=== PATIENT | female | born 1965 | race Caucasian/White ===

== ENCOUNTER 2019-05-26 13:01 | Inpatient (IN) | payer OTHER ==
[~2019-05-26] VITALS: Ht 167.6 cm; Wt 75.9 kg
[2019-05-26] MEDS ORDERED: NS 1,000 ML IV ONE (13:30)
[2019-05-26] MEDS ORDERED: ATOR40TA75 PO (13:34)
[2019-05-26] MEDS ORDERED: DULO1CAP6 PO (13:34)
[2019-05-26] MEDS ORDERED: QUET300T53 PO (13:34)
[2019-05-26] MEDS ORDERED: GABA-845 PO (13:34)
[2019-05-26] MEDS ORDERED: PANT40TA3 PO (13:34)
[2019-05-26] MEDS ORDERED: BUPR150T3 PO (13:34)
[2019-05-26] MEDS ORDERED: CLON1TAB17 PO (13:34)
[2019-05-26] MEDS ORDERED: CELE1CAP9 PO (13:34)
[2019-05-26] MEDS ORDERED: METF-954 PO (13:34)
[2019-05-26] MEDS ORDERED: RANI1TAB38 PO (13:34)
[2019-05-26] MEDS ORDERED: LAMO100T80 PO (13:34)
[2019-05-26] MEDS ORDERED: REXU1TAB3 PO (13:34)
[2019-05-26 13:50] LABS: VENOUS BASE EXCESS -8.3 (-2.0-2.0); VENOUS HCO3 17.1 MEQ/L (23.0-27.0); VENOUS O2 SATURATION 98.2 % (60.0-80.0); VENOUS PARTIAL PRESSURE CO2 34.9 mmHg (38.0-50.0); VENOUS PARTIAL PRESSURE O2 126.9 mmHg (30.0-50.0); VENOUS PH 7.307 UNITS (7.330-7.430); VENOUS STANDARD HCO3 17.9 MEQ/L; VENOUS TOTAL CO2 18.1 MEQ/L (24.0-28.0)
[2019-05-26 13:53] LABS: BASO % 0.3 % (0.0-1.0); HEMATOCRIT 40.4 % (36.0-47.0); HEMOGLOBIN 13.6 g/dl (12.0-15.5); LYMPH # 1.7 10^3/uL (1.5-4.5); LYMPH % 18.5 % (24.0-44.0); MEAN CORPUSCULAR HEMOGLOBIN 31.7 pg (27.0-33.0); MEAN CORPUSCULAR HGB CONC 33.7 g/dl (32.0-36.5); MEAN CORPUSCULAR VOLUME 94.2 fl (80.0-96.0); MONO # 0.5 10^3/uL (0.0-0.8); MONO % 5.7 % (0.0-5.0); NEUTROPHILS # 6.9 10^3/uL (1.8-7.7); NEUTROPHILS % 75.3 % (36.0-66.0); PLATELET COUNT, AUTOMATED 342 10^3/uL (150-450); RED BLOOD COUNT 4.29 10^6/uL (4.00-5.40); WHITE BLOOD COUNT 9.1 10^3/uL (4.0-10.0)
[2019-05-26 14:27] LABS: OSMOLALITY SERUM 289 MOSM/KG (275-295)
[2019-05-26] MEDS ORDERED: HumuLIN R (REGULAR) INSULIN (NovoLIN R) **100U/ML** PER UNIT IV ONE (14:45)
[2019-05-26 14:46] LABS: ACETONE/KETONE 6.86 MG/DL (<2.81); ALT/SGPT 49 U/L (12-78); BILIRUBIN,DIRECT 0.1 MG/DL (0.0-0.2); BILIRUBIN,TOTAL 0.2 MG/DL (0.2-1.0); CK-MB VALUE MASS < 1.0 NG/ML (<3.6); CPK CREATINE PHOSPHOKINASE 39 U/L (26-192); ETHYL ALCOHOL (ETHANOL) < 0.003 % (0.000-0.010); LIPASE 127 U/L (73-393); MAGNESIUM LEVEL 1.9 MG/DL (1.8-2.4); MB/CK RELATIVE INDEX 2.56 (< OR =4); PHOSPHORUS LEVEL 5.2 MG/DL (2.5-4.9); TOTAL PROTEIN 7.2 GM/DL (6.4-8.2); TROPONIN I < 0.02 NG/ML (< 0.10)
[2019-05-26] MEDS ORDERED: KCL 10MEQ IN D5/0.45NS 1000ML 1,000 ML IV SCH (15:00)
[2019-05-26] MEDS ORDERED: NS 2,000 ML IV ONE (15:00)
[2019-05-26] MEDS ORDERED: INSULIN HUMAN REGULAR 100 UNITS in NS 99 ML IV SCH ×2 (15:00→18:00)
[2019-05-26] MEDS ORDERED: INSULIN IV RATE CHANGE DOCUMENTATION ML/HR XX SCH (15:00)
[2019-05-26] MEDS ORDERED: ACETAMINOPHEN 325 MG TAB PO ONE (15:15)
[2019-05-26 15:20] LABS: HEMOGLOBIN A1c 10.4 %
[2019-05-26] MEDS ORDERED: LAMO150T2 PO ×2 (15:40)
[2019-05-26] MEDS ORDERED: GABA-843 PO (15:40)
[2019-05-26] MEDS ORDERED: CYAN100049 PO (15:40)
[2019-05-26] MEDS ORDERED: DEXTROSE 50% 50 ML SYRINGE IV STA (16:25)
[2019-05-26] MEDS ORDERED: D5W/0.45% SODIUM CHLORIDE 1,000 ML IV ONE (16:30)
[2019-05-26 16:36] VITALS: BP 118/57
[2019-05-26 17:00] VITALS: BP 122/58
[2019-05-26] MEDS: ENOXAPARIN 40 MG/0.4 ML SYRINGE (J1650) SC SCH (17:54)
[2019-05-26] MEDS: D5W/0.45% SODIUM CHLORIDE 1,000 ML IV SCH (17:54)
[2019-05-26 19:00] VITALS: BP 130/61
[2019-05-26] MEDS: INSULIN IV RATE CHANGE DOCUMENTATION ML/HR XX SCH ×2 (19:10→22:02)
[2019-05-26 20:00] VITALS: BP 125/61
[2019-05-26 20:35] LABS: AMPHETAMINES LEVEL URINE NEGATIVE (NEGATIVE); BARBITURATES URINE NEGATIVE (NEGATIVE); BENZODIAZEPINES URINE NEGATIVE (NEGATIVE); CANNABINOIDS URINE NEGATIVE (NEGATIVE); COCAINE METABOLITE URINE NEGATIVE (NEGATIVE); METHADONE URINE NEGATIVE (NEGATIVE); OPIATES URINE NEGATIVE (NEGATIVE); PHENCYCLIDINE URINE NEGATIVE (NEGATIVE)
[2019-05-26 20:44] LABS: BLOOD UREA NITROGEN 11 MG/DL (7-18); CALCIUM LEVEL 8.2 MG/DL (8.5-10.1); CARBON DIOXIDE LEVEL 19 MEQ/L (21-32); CHLORIDE LEVEL 107 MEQ/L (98-107); GLOMERULAR FILTRATION RATE > 60.0 (>51); GLUCOSE, FASTING 210 MG/DL (70-100); PHOSPHORUS LEVEL 2.8 MG/DL (2.5-4.9); SODIUM LEVEL 137 MEQ/L (136-145)
[2019-05-26] MEDS ORDERED: QUEtiapine FUMARATE 100 MG TAB PO SCH (21:00)
[2019-05-26] MEDS ORDERED: BREXPIPRAZOLE 0.5MG TABLET (REXULTI) PO SCH (21:00)
[2019-05-26] MEDS ORDERED: ATORVASTATIN 20 MG TAB PO SCH (21:00)
[2019-05-26] MEDS: DULoxetine 30 MG CAP (CYMBALTA) PO SCH (21:09)
[2019-05-26] MEDS: raNITIdine SYRUP 150 MG/10 ML UDC PO SCH (21:09)
[2019-05-26] MEDS: lamoTRIgine 100MG TAB PO SCH (21:10)
[2019-05-26] MEDS: PANTOPRAZOLE 40MG TAB (PROTONIX) PO SCH (21:10)
[2019-05-26] MEDS: GABAPENTIN 300 MG CAP PO SCH (21:10)
[2019-05-26] MEDS: buPROPion **XL** TABLET 150MG (WELLBUTRIN XL) PO SCH (21:10)
[2019-05-26] MEDS: clonazePAM 1 MG TAB PO SCH (21:11)
--- NOTE | 2019-05-26 22:09 | REP ---
Clinical: Diabetic ketoacidosis . Comparison: None . Findings: The mediastinum and cardiac silhouette are stable and within normal limits for portable technique. The lung lucio are clear without acute consolidation, effusion, or pneumothorax. Skeletal structures are intact. Impression: No acute cardiopulmonary process appreciated. Electronically Signed by Blayne Lawler MD 05/26/2019 10:01 P
--- NOTE | 2019-05-26 22:24 | HPE ---
DATE OF ADMISSION: 05/26/2019 PRIMARY CARE PHYSICIAN: Dr. Lindsay in [place]. CHIEF COMPLAINT: "[place] really wacked out; delirious, I think." HISTORY OF PRESENT ILLNESS: This is a 54-year-old female, history of bipolar disorder, type 2 diabetes, fibroid uterus, diabetic peripheral neuropathy, presents to the emergency room with feeling "wacked out and delirious" that she noticed since Saturday. The patient flew in from [place] and usually takes medications for her bipolar disorder. From [place] to [place], patient's medications went missing, and from Saturday, Saturday and Saturday, patient had not been taking any of her bipolar medications. She did have her metformin and clonazepam in her pocket on her way to [place]. Her parents mailed her pills, and she was started back on this today. Patient complained of diaphoresis, chills, two episodes of diarrhea, two episodes of vomiting yesterday. No abdominal pain. She felt that she was withdrawing and presented to the emergency room today. She was found to be in diabetic ketoacidosis with positive beta-hydroxybutyrate. Urine toxicology for ethyl alcohol was negative. Lactic acid was 3.5. Troponins were negative. She otherwise denied dysuria, urgency, frequency, fever, chills, or flank pain. She was admitted for diabetic ketoacidosis. PAST MEDICAL HISTORY: Bipolar disorder. Type 2 diabetes. Fibroid uterus. Hyperlipidemia. Vitamin B12 deficiency. Depression. Gastroesophageal reflux disease. PAST SURGICAL HISTORY: Tonsillectomy. Partial hysterectomy in 2001 due to fibroid uterus. Turbinate and uvula resection. Right ankle surgery due to ligament tear. Cholecystectomy. Two packs per day of smoking in the past. No history of chronic obstructive pulmonary disease (COPD). SOCIAL HISTORY: 60 pack-year history of smoking, quit 6 months ago. Previously worked as a bank loan documentation specialist. Currently on disability for bipolar disorder. Visiting from [place]. Will be flying back on Saturday. FAMILY HISTORY: Mother alive, age 75, with hypertension. Father alive, age 80, with hypercholesterolemia. REVIEW OF SYSTEMS: Per history of the present illness. Twelve point system otherwise negative. PHYSICAL EXAMINATION: Temperature 98.9, pulse 98, respiratory rate 17, blood pressure 156/77, 100% on room air. Generally, the patient is awake, alert, oriented times three, answering questions appropriately. Anicteric sclerae. No jaundice. Pupils round, reactive to light and accommodation. Extraocular muscles are intact. Moist mucous membranes. No cervical lymphadenopathy. No thyromegaly. No jugular venous distention. Lungs are clear to auscultation. No wheezing, rales, or rhonchi. Heart: S1, S2, sinus rhythm. No murmurs, rubs, or gallops. Abdomen: Soft, nontender, nondistended. Positive bowel sounds times four quadrants. No hepatosplenomegaly. No rebound or guarding. Extremities: No cyanosis, clubbing or pitting edema. Patient has some excoriations on bilateral shins, well healed. White count 9.1, hemoglobin 13, hematocrit 40, platelet count 342, 75% neutrophils. Beta-hydroxybutyrate 6.86. A1c of 10.4. Lactic acid 3.5, phosphorus 5.2, magnesium 1.9, total bilirubin 0.2, direct bilirubin 0.1, AST 27, ALT 49, alkaline phosphatase 97, troponin less than 0.02, total protein 7.2, albumin of 4, lipase of 127. VB.307, CO2 of 34. Sodium 128, potassium 4.5, chloride 96, bicarbonate 17, BUN 16, ionized calcium 4.4, creatinine 0.9, glucose at 1309 hours was 389. ASSESSMENT AND PLAN: This is a 54-year-old female with a history of type 2 diabetes, peripheral neuropathy, fibroid uterus, status post partial hysterectomy, bipolar disorder, presents to the emergency room with confusion due to possible withdrawal from not taking her bipolar medications, was found to be in mild diabetic ketoacidosis (DKA). The patient was admitted as an inpatient for the following issues: 1. Drug withdrawal from not having her bipolar medications for the past 4 days. Patient's home medications will be resumed. Patient is currently on telemetry unit. 2. Diabetic ketoacidosis. Patient has been kept on a consistent carbohydrate diet, fingersticks every 1 hour until anion gap is closed. Normal saline boluses until glucose is less than 250, then D5 until anion gap is closed, change to long-acting insulin, prevent hypoglycemia, hypoglycemic protocol and change to before food and nightly once insulin drip is discontinued. 3. Hyponatremia secondary to DKA. Repeat basic metabolic panel. 4. Bipolar disorder. Resume all home medications. 5. Depression and anxiety. Resume home medications. 6. Hypercholesterolemia. Continue on Lipitor. 7. Reflux disease. Continue on Protonix. 8. Vitamin B12 deficiency. Continue on B12. 9. Peripheral neuropathy. Continue on Neurontin. 10. Deep vein thrombosis (DVT) prophylaxis with compression stockings and Lovenox.
[2019-05-27] VITALS: BP 104/56
[2019-05-27] MEDS: INSULIN IV RATE CHANGE DOCUMENTATION ML/HR XX SCH (00:14)
[2019-05-27] MEDS: D5W/0.45% SODIUM CHLORIDE 1,000 ML IV SCH (00:14)
[2019-05-27 00:37] LABS: BLOOD UREA NITROGEN 11 MG/DL (7-18); CALCIUM LEVEL 7.8 MG/DL (8.5-10.1); CARBON DIOXIDE LEVEL 21 MEQ/L (21-32); CHLORIDE LEVEL 111 MEQ/L (98-107); CREATININE FOR GFR 0.82 MG/DL (0.55-1.30); GLOMERULAR FILTRATION RATE > 60.0 (>51); GLUCOSE, FASTING 164 MG/DL (70-100); PHOSPHORUS LEVEL 3.8 MG/DL (2.5-4.9); SODIUM LEVEL 140 MEQ/L (136-145); TROPONIN I < 0.02 NG/ML (< 0.10)
[2019-05-27] MEDS ORDERED: DEXTROSE 50% 50 ML SYRINGE IV PRN (00:45)
[2019-05-27] MEDS ORDERED: GLUCAGON FOR INJ 1 MG VIAL (J1610) SC PRN (00:45)
[2019-05-27] MEDS ORDERED: GLUCOSE 4 GM CHEW TABLET PO PRN (00:45)
--- NOTE | 2019-05-27 03:36 | ECGEPIP ---
[facility] - ED Test Date: 2019-05-26 Pat Name: EJ REIS Department: Room: [place] [address] Gender: Female Girls Swimming Coach: maninder : 1965 Requested By: TRUNG BRICEÑO PA-C Order Number: [id number] Reading MD: Kike Ordoñez Measurements Intervals [place] Rate: 99 P: [place]: -1 QRS: QRSD: 79 T: 62 QT: 342 QTc: 441 Interpretive Statements SINUS RHYTHM NO PRIORS FOR COMPARISON Electronically Signed on 05-27-2019 3:36:31 EDT by Kike Ordoñez
[2019-05-27 04:00] VITALS: BP 162/71
[2019-05-27 04:45] VITALS: BP 134/60
[2019-05-27 04:57] LABS: HEMATOCRIT 33.4 % (36.0-47.0); MEAN CORPUSCULAR HEMOGLOBIN 31.5 pg (27.0-33.0); MEAN CORPUSCULAR HGB CONC 33.5 g/dl (32.0-36.5); MEAN CORPUSCULAR VOLUME 94.1 fl (80.0-96.0); PLATELET COUNT, AUTOMATED 301 10^3/uL (150-450); RED BLOOD COUNT 3.55 10^6/uL (4.00-5.40); WHITE BLOOD COUNT 5.9 10^3/uL (4.0-10.0)
[2019-05-27 04:59] LABS: HEMOGLOBIN 11.2 g/dl (12.0-15.5)
[2019-05-27 05:07] LABS: ALBUMIN 3.3 GM/DL (3.2-5.2); ALT/SGPT 36 U/L (12-78); BILIRUBIN,TOTAL 0.3 MG/DL (0.2-1.0); BLOOD UREA NITROGEN 9 MG/DL (7-18); CALCIUM LEVEL 8.6 MG/DL (8.5-10.1); CARBON DIOXIDE LEVEL 24 MEQ/L (21-32); CHLORIDE LEVEL 110 MEQ/L (98-107); CREATININE FOR GFR 0.81 MG/DL (0.55-1.30); GLOMERULAR FILTRATION RATE > 60.0 (>51); GLUCOSE, FASTING 224 MG/DL (70-100); PHOSPHORUS LEVEL 3.8 MG/DL (2.5-4.9); POTASSIUM SERUM 4.3 MEQ/L (3.5-5.1); SODIUM LEVEL 140 MEQ/L (136-145); TOTAL PROTEIN 6.2 GM/DL (6.4-8.2)
[2019-05-27] MEDS ORDERED: HumaLOG INSULIN (NovoLOG) PER UNIT SC SCH ×2 (07:30→21:00)
[2019-05-27 08:00] VITALS: BP 136/60
[2019-05-27] MEDS ORDERED: metFORMIN 850 MG TAB PO SCH (08:00)
[2019-05-27] MEDS: raNITIdine SYRUP 150 MG/10 ML UDC PO SCH (08:26)
[2019-05-27] MEDS: ENOXAPARIN 40 MG/0.4 ML SYRINGE (J1650) SC SCH (08:26)
[2019-05-27] MEDS: DULoxetine 30 MG CAP (CYMBALTA) PO SCH (08:27)
[2019-05-27] MEDS: lamoTRIgine 100MG TAB PO SCH (08:27)
[2019-05-27] MEDS: clonazePAM 1 MG TAB PO SCH (08:27)
[2019-05-27] MEDS: PANTOPRAZOLE 40MG TAB (PROTONIX) PO SCH (08:27)
[2019-05-27] MEDS: GABAPENTIN 300 MG CAP PO SCH (08:27)
[2019-05-27] MEDS: buPROPion **XL** TABLET 150MG (WELLBUTRIN XL) PO SCH (08:33)
[2019-05-27 08:45] LABS: BLOOD UREA NITROGEN 8 MG/DL (7-18); CALCIUM LEVEL 9.3 MG/DL (8.5-10.1); CARBON DIOXIDE LEVEL 22 MEQ/L (21-32); CHLORIDE LEVEL 107 MEQ/L (98-107); CREATININE FOR GFR 0.92 MG/DL (0.55-1.30); GLOMERULAR FILTRATION RATE > 60.0 (>51); GLUCOSE, FASTING 268 MG/DL (70-100); PHOSPHORUS LEVEL 3.3 MG/DL (2.5-4.9); POTASSIUM SERUM 4.5 MEQ/L (3.5-5.1); SODIUM LEVEL 137 MEQ/L (136-145)
--- NOTE | 2019-05-27 08:56 | DS.PDOC ---
Discharge Summary General Date of Admission May 26, 2019 at 14:49 Date of Discharge May 27, 2019 Discharge Summary DISCHARGE DIAGNOSES: 1. Drug withdrawal from not having her bipolar medications 2. Diabetic ketoacidosis. 3. Hyponatremia secondary to DKA 4. Bipolar disorder 5. Depression and anxiety 6. Hypercholesterolemia. 7. Reflux disease 8. Vitamin B12 deficiency 9. Peripheral neuropathy 10. Tobacco Abuse-cessation counselling provided DISCHARGE MEDICATIONS: PLS SEE BELOW HISTORY OF PRESENTING ILLNESS: 54-year-old female, history of bipolar disorder, type 2 diabetes, fibroid uterus, diabetic peripheral neuropathy, presents to the emergency room with feeling "wacked out and delirious" that she noticed since Saturday. The patient flew in from [place] and usually takes medications for her bipolar disorder. [place], patient's medications went missing, and from Saturday, Saturday and Saturday, patient had not been taking any of her bipolar medications. She did have her metformin and clonazepam in her pocket on her way to [place]. Her parents mailed her pills, and she was started back on this today. Patient complained of diaphoresis, chills, two episodes of diarrhea, two episodes of vomiting yesterday. No abdominal pain. She felt that she was withdrawing and presented to the emergency room today. She was found to be in diabetic ketoacidosis with positive beta-hydroxybutyrate. Urine toxicology for ethyl alcohol was negative. Lactic acid was 3.5. Troponins were negative. She otherwise denied dysuria, urgency, frequency, fever, chills, or flank pain. She was admitted for diabetic ketoacidosis. HOSPITAL COURSE: 1. Drug withdrawal from not having her bipolar medications for the past 4 days. Patient's home medications will be resumed. Patient is currently on telemetry unit. 2. Diabetic ketoacidosis. Patient has been kept on a consistent carbohydrate diet, fingersticks every 1 hour until anion gap is closed. Normal saline boluses until glucose is less than 250, then D5 until anion gap is closed, change to long-acting insulin, prevent hypoglycemia, hypoglycemic protocol and change to before food and nightly once insulin drip is discontinued. 3. Hyponatremia secondary to DKA. Repeat basic metabolic panel. 4. Bipolar disorder. Resume all home medications. 5. Depression and anxiety. Resume home medications. 6. Hypercholesterolemia. Continue on Lipitor. 7. Reflux disease. Continue on Protonix. 8. Vitamin B12 deficiency. Continue on B12. 9. Peripheral neuropathy. Continue on Neurontin. 10. Deep vein thrombosis (DVT) prophylaxis with compression stockings and Lovenox. DISCHARGE PHYSICAL EXAMINATION: VITALS: PLS SEE BELOW Generally, the patient is awake, alert, oriented times three, answering questions appropriately. Anicteric sclerae. No jaundice. Pupils round, reactive to light and accommodation. Extraocular muscles are intact. Moist mucous membranes. No cervical lymphadenopathy. No thyromegaly. No jugular venous distention. Lungs are clear to auscultation. No wheezing, rales, or rhonchi. Heart: S1, S2, sinus rhythm. No murmurs, rubs, or gallops. Abdomen: Soft, nontender, nondistended. Positive bowel sounds times four quadrants. No hepatosplenomegaly. No rebound or guarding. Extremities: No cyanosis, clubbing or pitting edema. Patient has some excoriations on bilateral shins, well healed. ADMISSION LABORATORY DATA: White count 9.1, hemoglobin 13, hematocrit 40, platelet count 342, 75% neutrophils. Beta-hydroxybutyrate 6.86. A1c of 10.4. Lactic acid 3.5, phosphorus 5.2, magnesium 1.9, total bilirubin 0.2, direct bilirubin 0.1, AST 27, ALT 49, alkaline phosphatase 97, troponin less than 0.02, total protein 7.2, albumin of 4, lipase of 127. VB.307, CO2 of 34. Sodium 128, potassium 4.5, chloride 96, bicarbonate 17, BUN 16, ionized calcium 4.4, creatinine 0.9, glucose at 1309 hours was 389. DISCHARGE LABORATORY DATA, IMAGING STUDIES, MICROBIOLOGY: PLS SEE BELOW TIME SPENT ON DISCHARGE: 32 MIN Vital Signs/I&Os Vital Signs Date Time Temp Pulse Resp B/P (MAP) Pulse Ox O2 Delivery O2 Flow Rate FiO2 05/27/19 04:45 85 134/60 (84) 05/27/19 04:00 97.7 18 100 05/26/19 15:58 Room Air I&O- Last 24 Hours up to 6 AM 05/27/19 06:00 Intake Total 3778 ml Output Total 4350 ml Balance -572 ml Laboratory Data Labs 24H Laboratory Tests 2 05/26/19 13:09: Bedside Glucose (Misc Panel) 389H 05/26/19 13:41: Immature Granulocyte % (Auto) 0.2, White Blood Count 9.1, Red Blood Count 4.29, Hemoglobin 13.6, Hematocrit 40.4, Mean Corpuscular Volume 94.2, Mean Corpuscular Hemoglobin 31.7, Mean Corpuscular Hemoglobin Concent 33.7, Red Cell Distribution Width 12.7, Platelet Count 342, Neutrophils (%) (Auto) 75.3H, Lymphocytes (%) (Auto) 18.5L, Monocytes (%) (Auto) 5.7H, Eosinophils (%) (Auto) 0.0, Basophils (%) (Auto) 0.3, Neutrophils # (Auto) 6.9, Lymphocytes # (Auto) 1.7, Monocytes # (Auto) 0.5, Eosinophils # (Auto) 0.0, Basophils # (Auto) 0.0, Nucleated Red Blood Cells % (auto) 0.0, Blood Gas Bicarbonate Standard 17.9, Venous Blood pH 7.307L, Venous Blood Partial Pressure CO2 34.9L, Venous Blood Partial Pressure O2 126.9H, Venous Blood Total Carbon Dioxide 18.1L, Venous Blood HCO3 17.1L, Venous Blood Oxygen Saturation 98.2H, Venous Blood Base Excess -8.3L, Estimated Mean Plasma Glucose 252H, Hemoglobin A1c 10.4, Osmolality 289, Phosphorus Level 5.2H, Magnesium Level 1.9, Aspartate Amino Transf (AST/SGOT) 27, Alanine Aminotransferase (ALT/SGPT) 49, Alkaline Phosphatase 97, Total Bilirubin 0.2, Direct Bilirubin 0.1, Total Creatine Kinase 39, Creatine Kinase MB < 1.0, Creatine Kinase MB Relative Index 2.56, Troponin I < 0.02, Total Protein 7.2, Albumin 4.0, Albumin/Globulin Ratio 1.25, Lipase 127, Ethyl Alcohol Level < 0. 003, B-Hydroxybutyrate 6.86H 05/26/19 13:49: POC Lactate (Misc Panel) 5.45*H 05/26/19 13:53: POC Glucose (Misc Panel) 407H, POC Sodium (Misc Panel) 128L, POC Potassium (Misc Panel) 4.5, POC Chloride (Misc Panel) 96L, POC Total CO2 (Misc Panel) 17.0L, POC Blood Urea Nitrogen (Misc Panel 16, POC Ionized Calcium (Misc Panel) 4.4L, POC Creatinine (Misc Panel) 0.9, POC Hematocrit (Misc Panel) 43.0 05/26/19 15:17: Troponin I < 0.02 05/26/19 16:19: Bedside Glucose (Misc Panel) 31*L 05/26/19 16:23: Bedside Glucose (Misc Panel) 51L 05/26/19 16:41: Bedside Glucose (Misc Panel) 177H 05/26/19 16:55: Bedside Glucose (Misc Panel) 214H 05/26/19 17:53: Troponin I < 0.02 05/26/19 17:55: Bedside Glucose (Misc Panel) 223H 05/26/19 18:20: Lactic Acid Level 3.5*H 05/26/19 19:11: Bedside Glucose (Misc Panel) 222H 05/26/19 20:00: Urine Color COLORLESS, Urine Appearance CLEAR, Urine pH 5.0, Urine Specific [place] 1.002, Urine Protein NEGATIVE, Urine Glucose (UA) 1+H, Urine Ketones NEGATIVE, Urine Blood NEGATIVE, Urine Nitrite NEGATIVE, Urine Bilirubin NEGATIVE, Urine Urobilinogen 0.2, Urine Leukocyte Esterase NEGATIVE, Urine WBC (Auto) 0, Urine RBC (Auto) 0, Urine Hyaline Casts (Auto) 0, Urine Bacteria (Auto) NEGATIVE, Urine Squamous Epithelial Cells 0, Urine Sperm (Auto) , Urine Amphetamines Screen NEGATIVE, Urine Benzodiazepines Screen NEGATIVE, Urine Opiates Screen NEGATIVE, Urine Methadone Screen NEGATIVE, Urine Barbiturates Screen NEGATIVE, Urine Phencyclidine Screen NEGATIVE, Urine Cocaine Metabolite Screen NEGATIVE, Urine Cannabinoids Screen NEGATIVE 05/26/19 20:10: Bedside Glucose (Misc Panel) 208H 05/26/19 20:11: Anion Gap 11, Glomerular Filtration Rate > 60.0, Lactic Acid Level 3.8*H, Blood Urea Nitrogen 11, Creatinine 1.00, Sodium Level 137, Potassium Level 4.0, Chloride Level 107, Carbon Dioxide Level 19L, Calcium Level 8.2L, Phosphorus Level 2.8# 05/26/19 20:56: Bedside Glucose (Misc Panel) 218H 05/26/19 22:00: Bedside Glucose (Misc Panel) 159H 05/26/19 23:04: Bedside Glucose (Misc Panel) 168H 05/26/19 23:58: Anion Gap 8, Glomerular Filtration Rate > 60.0, Blood Urea Nitrogen 11, Creatinine 0.82, Sodium Level 140, Potassium Level 4.0, Chloride Level 111H, Carbon Dioxide Level 21, Calcium Level 7.8L, Phosphorus Level 3.8#, Troponin I < 0.02 05/27/19 00:10: Bedside Glucose (Misc Panel) 138H 05/27/19 00:44: Lactic Acid Followup at 4 Hours 2.1*H 05/27/19 01:01: Bedside Glucose (Misc Panel) 185H 05/27/19 02:03: Bedside Glucose (Misc Panel) 200H 05/27/19 04:15: Nucleated Red Blood Cells % (auto) 0.0, Anion Gap 6L, Glomerular Filtration Rate > 60.0, Blood Urea Nitrogen 9, Creatinine 0.81, Sodium Level 140, Potassium Level 4.3, Chloride Level 110H, Carbon Dioxide Level 24, Calcium Level 8.6, Phosphorus Level 3.8, Aspartate Amino Transf (AST/SGOT) 15, Alanine Aminotransferase (ALT/SGPT) 36, Alkaline Phosphatase 76, Total Bilirubin 0.3, Total Protein 6.2L, Albumin 3.3, Albumin/Globulin Ratio 1.14 05/27/19 04:18: Bedside Glucose (Misc Panel) 216H 05/27/19 07:54: Anion Gap 8, Glomerular Filtration Rate > 60.0, Blood Urea Nitrogen 8, Creatinine 0.92, Sodium Level 137, Potassium Level 4.5, Chloride Level 107, Carbon Dioxide Level 22, Calcium Level 9.3, Phosphorus Level 3.3 CBC/BMP Laboratory Tests 05/26/19 13:41 Red Blood Count 4.29, Mean Corpuscular Volume 94.2, Mean Corpuscular Hemoglobin 31.7, Mean Corpuscular Hemoglobin Concent 33.7, Red Cell Distribution Width 12.7, Neutrophils (%) (Auto) 75.3 H, Lymphocytes (%) (Auto) 18.5 L, Monocytes (%) (Auto) 5.7 H, Eosinophils (%) (Auto) 0.0, Basophils (%) (Auto) 0.3, Neutrophils # (Auto) 6.9, Lymphocytes # (Auto) 1.7, Monocytes # (Auto) 0.5, Eosinophils # (Auto) 0.0, Basophils # (Auto) 0.0 05/26/19 20:11 Calcium Level 8.2 L 05/26/19 23:58 Calcium Level 7.8 L 05/27/19 04:15 Red Blood Count 3.55 L, Mean Corpuscular Volume 94.1, Mean Corpuscular Hemoglobin 31.5, Mean Corpuscular Hemoglobin Concent 33.5, Red Cell Distribution Width 12.5, Calcium Level 8.6, Phosphorus Level 3.8, Aspartate Amino Transf (AST/SGOT) 15, Alanine Aminotransferase (ALT/SGPT) 36, Alkaline Phosphatase 76, Total Bilirubin 0.3, Total Protein 6.2 L, Albumin 3.3 05/27/19 07:54 Calcium Level 9.3 FSBS Laboratory Tests Test 05/26/19 13:09 05/26/19 16:19 05/26/19 16:23 05/26/19 16:41 Range/Units Bedside Glucose (Misc Panel) 389 31 51 177 70-105 MG/DL Test 05/26/19 16:55 05/26/19 17:55 05/26/19 19:11 05/26/19 20:10 Range/Units Bedside Glucose (Misc Panel) 214 223 222 208 70-105 MG/DL Test 05/26/19 20:56 05/26/19 22:00 05/26/19 23:04 05/27/19 00:10 Range/Units Bedside Glucose (Misc Panel) 218 159 168 138 70-105 MG/DL Test 05/27/19 01:01 05/27/19 02:03 05/27/19 04:18 Range/Units Bedside Glucose (Misc Panel) 185 200 216 70-105 MG/DL Microbiology Microbiology 05/26/19 Blood Culture, Received Pending Discharge Medications Scheduled Atorvastatin Calcium (Atorvastatin Calcium) 40 Mg Tablet, 40 MG PO QHS, (Reported) Brexpiprazole (Rexulti) 1 Mg Tablet, 1 MG PO QPM, (Reported) Bupropion Hcl (Bupropion Xl) 150 Mg Tab.er.24h, 150 MG PO BID, (Reported) Celecoxib (Celecoxib) 200 Mg Capsule, 200 MG PO QHS, (Reported) Clonazepam (Clonazepam) 1 Mg Tab.rapdis, 1 MG PO TID, (Reported) Cyanocobalamin (Vitamin B-12) (Vitamin B-12) 1,000 Mcg Tablet, 1,000 MCG PO DAILY, (Reported) Duloxetine Hcl (Duloxetine HCl) 60 Mg Capsule.dr, 60 MG PO BID, (Reported) Gabapentin (Gabapentin) 300 Mg Capsule, 300 MG PO TID, (Reported) Lamotrigine (Lamotrigine) 150 Mg Tablet, 150 MG PO BID, (Reported) Lamotrigine (Lamotrigine) 150 Mg Tablet, 75 MG PO DAILY, (Reported) TAKES AT NOON Metformin HCl (Metformin HCl) 850 Mg Tablet, 850 MG PO WM, (Reported) Pantoprazole Sodium (Pantoprazole Sodium) 40 Mg Tablet.dr, 40 MG PO BID, (Reported) Quetiapine Fumarate (Quetiapine Fumarate ER) 300 Mg Tab.er.24h, 300 MG PO QHS, (Reported) Ranitidine Hcl (Ranitidine HCl) 150 Mg Tablet, 1 TAB PO BID, (Reported) Allergies Coded Allergies: Penicillins (Verified Allergy, Unknown, 05/26/19) Sulfa (Sulfonamide Antibiotics) (Verified Allergy, Unknown, 05/26/19) TAPE (Verified Allergy, Unknown, 05/26/19) bacitracin (Verified Allergy, Unknown, 05/26/19) neomycin (Verified Allergy, Unknown, 05/26/19) polymyxin B (Verified Allergy, Unknown, 05/26/19) RADHA RAMÍREZ MD May 27, 2019 08:56
[2019-05-27] MEDS ORDERED: LEVEMIR (INSULIN DETEMIR) 1 UNITS/0.01ML SC SCH (09:00)
[2019-05-27] MEDS ORDERED: CYANOCOBALAMIN 500 MCG TAB PO SCH (09:00)
[2019-05-27] MEDS ORDERED: lamoTRIgine 25 MG TAB PO SCH (12:00)
== END 2019-05-27 11:52 | disposition home or self-care (01) | DRG 776 ==
LOC: M ED 13:01 → M ED INP 14:49 → M ICU 16:10
PROVIDERS: ADMIT General Practice; ATTEND General Practice
DX: F19.231 Other psychoactive substance dependence with withdrawal delirium (principal); E11.10 Type 2 diabetes mellitus with ketoacidosis without coma; E11.51 Type 2 diabetes mellitus with diabetic peripheral angiopathy without gangrene; E87.1 Hypo-osmolality and hyponatremia; F31.9 Bipolar disorder, unspecified; K21.9 Gastro-esophageal reflux disease without esophagitis; E53.8 Deficiency of other specified B group vitamins; E78.5 Hyperlipidemia, unspecified; Z87.891 Personal history of nicotine dependence; F41.9 Anxiety disorder, unspecified; Z88.2 Allergy status to sulfonamides; Z88.8 Allergy status to other drugs, medicaments and biological substances; Z79.899 Other long term (current) drug therapy; Z88.0 Allergy status to penicillin